=== PATIENT | male | born 1965 | race Caucasian/White ===

== ENCOUNTER 2021-02-09 12:16 | Emergency (ER) | payer MEDICARE, OTHER ==
[2021-02-09 14:19] LABS: HEMOGLOBIN 15.9 gm/dl (14.0-17.5); RED BLOOD COUNT 5.16 M/UL (4.20-5.50); WHITE BLOOD COUNT 6.6 K/UL (4.5-11.0)
[2021-02-09 15:02] LABS: BUN/CREATININE RATIO 12 (0-10)
[2021-02-09] MEDS ORDERED: VENTOLIN HFA 66.7 GM INH (16:25)
[2021-02-09] MEDS ORDERED: DOXYCYCLINE HY100 MG PO (16:25)
== END 2021-02-09 16:57 | disposition home or self-care (01) ==
LOC: ER1 12:16
PROVIDERS: Emergency Medicine
DX: J18.9 Pneumonia, unspecified organism (principal); R93.5 Abnormal findings on diagnostic imaging of other abdominal regions, including retroperitoneum; Z87.891 Personal history of nicotine dependence
CPT/HCPCS: 36415; 71045; 80053; 82550; 82553; 83874; 84484; 85025; 85379; 99285